=== PATIENT | male | born 1985 | race Caucasian/White ===

== ENCOUNTER → 2018-12-14 17:25 | Outpatient (CLI) | payer BC, SELFPAY ==
--- NOTE | 2018-12-14 17:41 | XR_ITS ---
PROCEDURE: XR HIP LT 2-3V W/PELVIS CLINICAL INDICATION: LEFT HIP PAIN, NO INJURY COMPARISON: [id number] HIP RT 2-3V W/PELVIS IF PERFOR from 10/12/2016 FINDINGS: No fracture or dislocation. No lytic or blastic change. There is minimal spurring along the inferior aspect of the acetabulum. IMPRESSION: Minimal degenerative change, no acute finding Dictated by: Eugenio Zuniga MD 12/15/2018 04:40 Electronically signed by Eugenio Zuniga MD in [place] 12/15/2018 04:40
== END ==
PROVIDERS: PCP Family Medicine; Visit Provider Family Medicine
DX: M53.3 Sacrococcygeal disorders, not elsewhere classified (principal)
CPT/HCPCS: 73502

== ENCOUNTER → 2019-03-14 08:33 | Outpatient (CLI) | payer BC, SELFPAY ==
--- NOTE | 2019-03-14 08:34 | MR_ITS ---
PROCEDURE: MR LUMBAR SPINE WO CON CLINICAL INDICATION: SCIATICA OF LT SIDE COMPARISON: LS5 LUMBAR SPINE 5 VIEWS from 10/12/2016 TECHNIQUE: Standard multiplanar multiecho sequences are performed without contrast. 3-D MIP and myelographic images are also rendered and reviewed FINDINGS: Alignment, vertebral body heights and signal from the osseous marrow elements are normal. Disc space heights are normal. There is no disc bulge, herniation or central canal stenosis. Posterior elements are intact and appear normal. Nerve roots in the foraminal areas appear normal. Conus and cauda equina structures are normal. Paraspinal areas are IMPRESSION: Unremarkable. Normal exam. Dictated by: Bret Wise 03/14/2019 12:37 Electronically signed by Bret Wise in [place] 03/14/2019 12:37
== END ==
PROVIDERS: PCP Family Medicine; Visit Provider Family Medicine
DX: M54.32 Sciatica, left side (principal)
CPT/HCPCS: 72148; 76376

== ENCOUNTER → 2019-10-16 11:42 | Outpatient (CLI) | payer BC, SELFPAY ==
[2019-10-16 12:06] LABS: Basophils % 0.7 % (0.1-2.0); Eosinophils # 0.2 K/mm3 (0.0-0.4); Eosinophils % 2.7 % (0.1-12.0); Hematocrit 45.6 % (42.0-52.0); Hemoglobin 15.9 g/dL (14.1-18.0); Lymphocytes # 2.2 K/mm3 (0.7-4.5); Lymphocytes % 34.7 % (10-50); Mean Corpuscular HGB Conc 34.9 g/dL (31.8-35.4); Mean Corpuscular Hemoglobin 28.6 pg (27.0-31.2); Mean Platelet Volume 8.7 fl (7.4-10.4); Monocytes # 0.3 K/mm3 (0.1-1.0); Monocytes % 4.6 % (1.7-9.3); Neutrophils # 3.7 K/mm3 (1.8-7.8); Neutrophils % 57.3 % (37.0-80.0); Platelet Count 205 K/mm3 (142-424); Red Blood Count 5.56 M/mm3 (4.60-6.20); Red Cell Distribution Width 14.1 % (11.5-17.5); White Blood Count 6.4 K/mm3 (4.8-10.8)
[2019-10-16 14:26] LABS: Chloride 99 mmol/L (98-107); Sodium 140 mmol/L (136-145)
[2019-10-16 14:27] LABS: Potassium 5.1 mmoL/L (3.5-5.1)
[2019-10-16 14:29] LABS: Blood Urea Nitrogen 11 mg/dl (9-20); Estimated Glomerular Filt Rate 128 ml/min (>60); GFR (African American) 155 ML/MIN (>60)
[2019-10-16 14:30] LABS: Anion Gap 17.1 mEq/L (5-15); Calcium 9.8 mg/dl (8.4-10.2); Carbon Dioxide 29 mmol/L (22.0-30.0); Glucose 116 mg/dl (74-100)
[2019-10-16 20:16] LABS: Coronavirus 19 IgM Antibody Negative (Negative)
[2019-10-16 20:18] LABS: Coronavirus 19 IgG Antibody Positive (Negative)
== END ==
PROVIDERS: Visit Provider Surgery
DX: Z01.818 Encounter for other preprocedural examination (principal); L02.215 Cutaneous abscess of perineum
CPT/HCPCS: 36415; 80048; 85025; 86328

== ENCOUNTER 2019-10-18 09:22 | Day surgery (SDC) | payer BC, SELFPAY ==
[2019-10-18] VITALS (10 sets, daily range): BP systolic 125–168; BP diastolic 71–97; PULSE 73–98; RESP 12–18; TEMP 36.4–36.7; O2SAT 91–100
[2019-10-18 10:29] LABS: POC Glucose,Bedside 137 (70-110)
--- NOTE | 2019-10-18 11:18 | HMH.OPNOTE ---
Date of procedure: 10/18/19 Pre-op Diagnosis:: Chronic perianal abscess Post-op Diagnosis:: Same Procedure performed:: Excision and debridement of presumed perianal hidradenitis Surgeon:: Raghavendra Guaman MD CHEMICAL DEPENDENCY PROFESSIONAL:: Elvis Glover Anesthesia: LMA Estimated blood loss (mL): 5 Clinical Note:: Patient is a pleasant 34-year-old white male diabetic from [facility] referred by Jose Antonio Starks for perirectal abscess. Patient states that he has had an area in the perianal location for about 6 months. He occasionally has intermittent swelling and appreciable drainage. It never fully resolves. Operative findings:: Consistent with subdermal focal hidradenitis and not true perirectal abscess with some underlying chronic inflammatory granulation tissue Operative note:: Patient was taken the operating room. He was positioned in a supine position. General anesthesia was induced via LMA. He was then repositioned in traditional lithotomy position. The area was prepped and draped in the standard surgical fashion. There is an area of induration in the left posterior lateral location. Limited incision was made. There is no gross purulence. Limited elliptical incision was made excising the central area of inflammation. This was sent as specimen. There was some underlying chronically inflamed granulation tissue grossly consistent with probable hidradenitis. Wound was probed with a blunt probe. It did track somewhat anteriorly and posteriorly. This was opened in a limited fashion using electrocautery. The tissues were then debrided with a small curette. This did not appear to track deeply as would be the case with a perirectal abscess. Wound was irrigated. Hemostasis was achieved with limited use of electrocautery. Local anesthetic was infiltrated. Wound was lightly packed with dry gauze and covered with clean dry sterile dressing. Condition: stable Disposition: PACU Complications:: None immediately apparent
--- NOTE | 2019-10-18 11:19 | HMH.ANESCL ---
[facility] Anesthesia Checklist - Structural Data Admitted From: Home Planned Operative Procedure/s: i/d perineal abcess Consent for Planned Operative Procedure(s) Verified: Yes - Additional verifications Anesthesia Reactions: No Hx Blood Transfusions: No Blood Transfusion Reaction: No - Airway Assessment C-Spine Mobility Assessed: Yes TMJ Mobility Assessed: Yes Dentition: Good Dentition - Neurological Assessment Level of Consciousness: Awake, Alert, Appropriate - Anesthesia Plan Anesthesia Risk discussed: Yes Anesthesia Plan: Verified ASA Class: III Anesthesia Type: General [facility] History I have reviewed the patient's past medical history: Yes Medical History: Reports:: Coronary Artery Disease, Diabetes Mellitus Type 2, Gastroesophageal Reflux Disease(GERD) Denies:: Cancer, Diabetes Mellitus Type 1, Internal Pacemaker, MRSA, Seizures *Have you ever received a pneumonia vaccine?: No *Have you received a flu vaccine this season?: No Other Medical History: Denies: Blood Transfusion Reaction Anesthesia experience/problems:: none Laterality Cases: Bilateral: Tonsillectomy Other Surgeries: Yes: Other. No: Pacemaker Amputation: No Fractures: No - *Social History Last grade of school completed: Some college Smoking Status: Current every day smoker Tobacco Type: smokeless tobacco # Packs/Day (cigarettes): 0 Alcohol Intake: never Alcohol Intake Frequency:: holidays/special occasions only Substance Use Type: denies use *Occupational Status:: employed Housing: house Household Members: family *Travel in the last 8 weeks: None Family Hx:: Anemia, Cancer, Coronary Artery Disease, Diabetes, Heart Attack, Hyperlipidemia, Hypertension, Thyroid Disorder
--- NOTE | 2019-10-18 11:19 | HMH.ANESI ---
[facility] Anesthesia Record Part I Intake, IV Amount: 1,500 Estimated blood loss (mL): 0 Urine output (mL): 0 Blood Pressure: 125/75 SaO2: 95 Pulse Rate: 98 Respiratory Rate: 12 Temperature: 98 F Patient is:: Awake, Stable Stable to PACU at:: 11:15
[2019-10-18 11:51] LABS: POC Glucose,Bedside 125 (70-110)
--- NOTE | 2019-10-20 09:41 | HMH.ANESII ---
[facility] Anesthesia Record Part II Discharge Time: 11:45 Destination: [facility] PACU nurse assessment reviewed?: Yes Patient Condition:: Good Anesthesia Complications:: None Swallowing reflex intact?: Yes Cyanosis?: No Blood Pressure: 159/87 Pulse Rate: 80 Temperature: 97.5 F Mental Status: Alert & Oriented Pain level:: 0 Nausea and/or vomitting:: None Intake, IV Amount: 1,500
[2019-10-20 09:42] VITALS: BP 159/87; PULSE 80; TEMP 36.4
== END 2019-10-18 12:25 | disposition home or self-care (01) ==
LOC: OR 09:23
PROVIDERS: PCP Family Medicine; Visit Provider Surgery
PROC: (CPT 46050; principal; 2019-10-18 11:00)
DX: L73.2 Hidradenitis suppurativa (principal); L08.89 Other specified local infections of the skin and subcutaneous tissue; I25.10 Atherosclerotic heart disease of native coronary artery without angina pectoris; E11.9 Type 2 diabetes mellitus without complications; K21.9 Gastro-esophageal reflux disease without esophagitis; Z90.89 Acquired absence of other organs; E78.5 Hyperlipidemia, unspecified; I10 Essential (primary) hypertension; I51.9 Heart disease, unspecified; E06.9 Thyroiditis, unspecified; Z88.0 Allergy status to penicillin; Z79.899 Other long term (current) drug therapy
CPT/HCPCS: 46050; 82962; 96374; J2405

== ENCOUNTER 2019-12-07 16:05 | Emergency (ER) | payer BC, SELFPAY ==
[2019-12-07 16:56] VITALS: BP 150/94; PULSE 78; RESP 16; TEMP 37.6; O2SAT 98; BMI 40.8
--- NOTE | 2019-12-07 17:14 | HMH.EDUTC ---
[facility] [place] Clinical Impression: Encounter for laboratory testing for COVID-19 virus Disposition: Home, Self-Care Condition on Discharge: Good Instructions: Preventing the Spread of Coronavirus Discharge Instructions Additional Instructions: You was tested for COVID 19, make sure to call back to the [facility] in the next 48-72 hours to see if your test results are back and the results *Return if needed Straight to ER if any life threatening symptoms No work until you have a negative test result Referrals: Jian Starks MD [Primary Care Provider] - As needed Forms: Work/School Release Time of Disposition: 17:19 Medical Decision Making - Gato Inquiry Pt receiving controlled substance: No Gato was queried for this patient: No Vital Signs: 12/07/19 16:56 Temperature 99.7 F H Temperature Source Oral Pulse Rate [Left Radial] 78 Respiratory Rate 16 Blood Pressure [Right Arm] 150/94 H Blood Pressure Mean [Right Arm] 112 Blood Pressure Source [Right Arm] Automatic Cuff Blood Pressure Position [Right Arm] Sitting 02 Sat by Pulse Oximetry 98 Oxygen Delivery Method Room Air Orders (Tests/Meds): ORDERS Category Date Time Status Covid-19 Nasal PCR Sendout [facility] 12/07/19 17:08 Received [facility] HPI - General Stated complaint: COVID test Time Seen by Provider: 12/07/19 17:14 Mode of Arrival: Ambulatory Source of Information: Patient Limitations: No Limitations Description of Symptoms (Recalled from Triage Doc. by RN): Pt states he was at a family gathering last week and was exposed to COVID-19. Pt states he has no symptoms but wants tested for the virus. HEENT Symptoms (Recalled from RN notes): No Resp Symptoms (Recalled from RN notes): No Skin Symptoms (Recalled from RN notes): No MS Symptoms (Recalled from RN notes): No Functional Status (Recalled from RN notes): wnl - History of Present Illness Provider Complaint: Patient states that he was around his brother in law last week that has since been dx with COVID States that he isnt having any symptoms but his work wanted him to get tested where he has been around someone that was positive - Related Data Home Medications Medication Instructions Recorded Confirmed Dulaglutide [Trulicity] 1.5 mg SQ WEEKLY 06/26/19 11/13/19 Metformin HCl [Metformin 1000mg 1,000 mg PO BID 06/26/19 11/13/19 Tablets] Omeprazole Magnesium [Prilosec] 10 mg PO DAILY 06/26/19 11/13/19 lisinopriL [Lisinopril 10mg Tab] 10 mg PO BID 06/26/19 11/13/19 gabapentin 300 mg capsule 300 mg PO BID 10/06/19 11/13/19 Previous Rx's Medication Instructions Recorded clindamycin HCl 300 mg capsule 300 mg PO TID #90 cap 11/03/19 tetracycline 500 mg capsule 500 mg PO Q12H 10 Days #20 cap 11/13/19 Allergies Allergy/AdvReac Type Severity Reaction Status Date / Time Penicillins Allergy Verified 11/13/19 09:00 - Worker's Comp Is this a Worker's Comp case?: No Is this an [facility] Worker's Comp?: No Is this a [facility] Worker's Comp?: No [facility] History - Hepatitis A Screen Drug use history?: No High risk sexual behaviors?: No History of sexually transmitted infection?: No Currently employed?: No Childcare worker?: No Do you have indoor plumbing?: Yes Do you have electricity?: Yes Attestation statement:: This patient has been screened for Hepatitis A risk factors. I have reviewed the patient's past medical history: Yes Medical History: Reports:: Coronary Artery Disease, Gastroesophageal Reflux Disease(GERD) Denies:: Cancer, Diabetes Mellitus Type 1, Diabetes Mellitus Type 2, Internal Pacemaker, MRSA, Seizures Other Medical History: Denies: Blood Transfusion Reaction Laterality Cases: Bilateral: Tonsillectomy Other Surgeries: Yes: Other. No: Pacemaker Amputation: No Fractures: No - Social History Smoking Status: Never smoker Tobacco Type: smokeless tobacco # Packs/Day (cigarettes): 0 Alcohol Intake: never Alcohol Intake Frequency:: holidays/special o
[2019-12-07 17:27] VITALS: BP 150/94; PULSE 78; RESP 16; TEMP 37.6; O2SAT 98
[2019-12-10 12:47] LABS: Covid-19 Nasal PCR Sendout Lex NOT DETECTED
== END 2019-12-07 17:28 | disposition home or self-care (01) ==
PROVIDERS: Emergency Provider Nurse Practitioner; PCP Family Medicine
DX: Z20.828 Contact with and (suspected) exposure to other viral communicable diseases (principal); E11.9 Type 2 diabetes mellitus without complications; I10 Essential (primary) hypertension; I25.10 Atherosclerotic heart disease of native coronary artery without angina pectoris; K21.9 Gastro-esophageal reflux disease without esophagitis; Z88.0 Allergy status to penicillin; Z79.899 Other long term (current) drug therapy
CPT/HCPCS: 99201; U0004

== ENCOUNTER → 2019-12-28 13:22 | Outpatient (CLI) | payer BC, SELFPAY ==
[2019-12-28 15:39] LABS: Chloride 101 mmol/L (98-107); Sodium 139 mmol/L (136-145)
[2019-12-28 15:41] LABS: Alanine Aminotransferase 55 U/L (12-78); Aspartate Amino Transferase 41 U/L (17-59); Blood Urea Nitrogen 10 mg/dl (9-20); Estimated Glomerular Filt Rate 110 ml/min (>60); GFR (African American) 133 ML/MIN (>60)
[2019-12-28 15:42] LABS: Albumin Level 4.6 g/dl (3.5-5.0); Albumin/Globulin Ratio 1.7 (1.1-1.8); Alkaline Phosphatase 61 U/L (38-126); Bilirubin,Total 0.5 mg/dl (0.2-1.3); Calcium 9.7 mg/dl (8.4-10.2); Carbon Dioxide 30 mmol/L (22.0-30.0); Cholesterol 78 mg/dl (140-200); Globulin 2.7 g/dL (1.3-3.2); Glucose 121 mg/dl (74-100); HDL Cholesterol 39 mg/dl (40-60); Total Protein,Serum 7.3 g/dl (6.3-8.2); Triglycerides 39 mg/dl (30-150); VLDL Cholesterol 8 mg/dL (0-40)
[2019-12-28 15:57] LABS: Direct LDL Cholesterol 33.59 mg/dL (100-129)
[2019-12-28 16:16] LABS: Thyroid Stimulating Hormone 1.14 uIU/mL (0.465-4.68)
[2019-12-28 17:15] LABS: Hemoglobin A1C 7.2 % (4.0-6.0)
== END ==
PROVIDERS: Visit Provider Family Medicine
DX: E78.00 Pure hypercholesterolemia, unspecified (principal); I10 Essential (primary) hypertension; E11.9 Type 2 diabetes mellitus without complications; Z79.84 Long term (current) use of oral hypoglycemic drugs
CPT/HCPCS: 36415; 80053; 80061; 83036; 84443

== ENCOUNTER → 2020-01-03 07:49 | Outpatient (CLI) | payer BC, SELFPAY ==
--- NOTE | 2020-01-03 | CA_ITS ---
APPROVED REPORT Exam: Exercise Treadmill Technologist: Abi Krause Ht: 5 ft 9 in Wt: 276 lbs BSA: 2.37 m2 HR: 74 bpm BP: 143/86 mmHg Indications: Precordial chest pain Medical History Medications: Lisinopril,,,,, Omeprazole,,,,, Metformin,,,,, GabPENTIN,,,,, ClINDAMYCIN,,,,, TrULicity,,,,, TeTRacycline,,,,, Stress Test Details Test: Aditya HR Resting HR: 78 bpm Max Heart Rate (APMHR): 185 bpm Max HR Achieved: 163 bpm Target HR (85% APMHR): 157 bpm % of APMHR: 88 Recovery HR: 108 bpm BP Resting BP: 143.0/86.0 mmHg Max BP: 250.0/80.0 mmHg Recovery BP: 150.0/81.0 mmHg ECG Clinical Exercise duration: 06:30 min Highest Stage Achieved: Exercise capacity: 7.0 METs Stress ECG Conclusion Resting ECG: Normal sinus rhythm, nonspecific IVCD. Symptoms: Dyspnea. No chest pain. Arrhythmias/Ectopy: Occasional fusion beat during exercise. Occasional PVC and Ventricular couplet after exercise. ST-T Changes: Inferior & lateral T wave inversion with 1.5 - [address] depression inferiorly and 1-1.5 mm of horizontal and downsloping ST depression laterally. Conclusion: EKG changes positive for ischemia. Hypertensive response to exercise. Myoview images reported separately. Test Summary RECOVERY 03:00 0.0 0.0 111 . 203/ 88 . . REST . . . . . . . Standing REST 04:19 0.0 0.0 78 . 143/ 86 . . Stage 1 01:00 10.0 1.7 112 . . . . Stage 1 02:00 10.0 1.7 127 . . . . Stage 1 03:00 10.0 1.7 135 . 220/ 92 . . Stage 2 01:00 12.0 2.5 141 . . . . Stage 2 02:00 12.0 2.5 152 . 234/ 80 . . Stage 2 . . . . . . . Myoview Injected Stage 2 . . . . . . . Stage held Stage 2 . . . . . . . Shortness of Breath Stage 2 03:00 12.0 2.5 160 . 234/ 80 . . Stage 2 . . . . . . . Stage resumed Stage 2 03:30 12.0 2.5 163 . 234/ 80 . Stop exercise at 06:30 RECOVERY 01:00 0.0 0.0 135 . 250/ 80 . . RECOVERY 02:00 0.0 0.0 120 . 250/ 80 . . RECOVERY 03:00 0.0 0.0 111 . 203/ 88 . . RECOVERY 04:00 0.0 0.0 106 . 203/ 88 . . RECOVERY 05:00 0.0 0.0 101 . 170/ 84 . . RECOVERY 06:00 0.0 0.0 101 . 170/ 84 . . RECOVERY 07:00 0.0 0.0 108 . 150/ 81 . . RECOVERY 07:59 0.0 0.0 98 . 150/ 81 . . Electronically signed by : Bryon Moreno, 01/05/2020 14:01:20
--- NOTE | 2020-01-03 07:56 | NM_ITS ---
APPROVED REPORT Exam: Nuclear Stress Test Indication: HTN, D.M., TOB USE, FM HX, C.P., SOB, PALPITATIONS, FATIGUE Patient Location: Outpatient Stress Tech: Abi Krause OR Tech:Shilpi Lincoln, ARRT, RT (R)(N) Ht: 5 ft 9 in Wt: 276 lbs HR: 74 bpm BP: 143/86 mmHg BSA: 2.37 m2 BMI: 40.7 History: HTN, D.M., TOB USE, FM HX, C.P., SOB, PALPITATIONS, FATIGUE Procedure: Patient exercised on Aditya protocol 6:00 minutes and sec, resting heart rate 74 bpm, resting blood pressure 143/86 mmHg, with exercise maximum heart rate achived was 156 bpm which is 88 % of the maximum predicted heart rate and blood pressure was 234/80 mmHg. Patient denied any complaint of chest pain. Patient has Adequate exercise capacity, achieved 7 METs of workload on treadmill, the blood pressure response to exercise was Hypertensive. Electrocardiogram Resting electrocardiogram showed sinus rhythm, with exercise there is additional [address] segment depression noted from the baseline EKG. The EKG portion of the exercise Myoview is positive for ischemia. Cardiac Stress and Resting SPECT Images: Cardiac Stress and Resting SPECT images were obtained using technetium 99m Myoview 32.1 mCi stress and 10.19 mCi at rest. Gated SPECT for the analysis of segmental wall motion and calculation of the ejection fraction also done. Cardiac stress and resting SPECT images show uniform myocardial activity without segmental perfusion abnormality, computer derived ejection fraction 45% with no regional wall motion abnormality, there is transient ischemic dilatation of the left ventricle seen. Right ventricle is mildly enlarged with normal contractility. Conclusion: 1. The EKG portion of the exercise Myoview is positive for ischemia, patient has adequate exercise capacity achieved 7 mets of workload on treadmill, the blood pressure response to exercise was hypertensive, test was stopped due to shortness of breath. 2. No scintigraphic evidence of reversible ischemia seen, however there is transient ischemic dilatation of the left ventricle seen raising the concerns for presence of balanced ischemia. Right ventricle is mildly enlarged with normal contractility, left ventricular ejection fraction is 45% with no regional wall motion abnormality pain 3. Abnormal exercise Myoview study. Electronically signed by : Bryon Moreno, 01/05/2020 15:00:56
--- NOTE | 2020-01-03 07:57 | XR_ITS ---
PROCEDURE: XR CHEST 2V CLINICAL HISTORY: ASTHMA Chest discomfort, wheezing COMPARISON: CR XR CHEST PORTABLE from 06/26/2019 FINDINGS: The cardiomediastinal silhouette and pulmonary vascularity are within normal limits. There are slight increased markings in the right lower lung zone suggesting a patchy area of atelectasis or infiltrate. The remaining lungs are clear. No acute bony abnormalities. IMPRESSION: Patchy atelectasis or infiltrate in the right lower lung zone Dictated by: Eugenio Zuniga MD 01/03/2020 08:41 Eugenio Zuniga MD in [place] 01/03/2020 08:41
--- NOTE | 2020-01-03 09:13 | HMH.ITSHM ---
Current Home Medications as stated by this patient Varun Crocker or enrollment eligibility representative. []CHLORTHALIDONE METFORMIN LISINOPRIL PROAIR TRAMADOL
== END ==
PROVIDERS: PCP Family Medicine; Visit Provider Family Medicine
DX: R07.2 Precordial pain (principal); J45.41 Moderate persistent asthma with (acute) exacerbation
CPT/HCPCS: 71046; 78452; 93017; A9502

== ENCOUNTER → 2020-02-28 12:36 | Outpatient (CLI) | payer BC, SELFPAY ==
[2020-02-28 13:09] LABS: Basophils # 0.1 K/mm3 (0-0.2); Basophils % 0.6 % (0.1-2.0); Eosinophils # 0.3 K/mm3 (0.0-0.4); Eosinophils % 3.9 % (0.1-12.0); Hematocrit 42.6 % (42.0-52.0); Hemoglobin 14.9 g/dL (14.1-18.0); Lymphocytes # 2.7 K/mm3 (0.7-4.5); Lymphocytes % 32.4 % (10-50); Mean Corpuscular Hemoglobin 28.8 pg (27.0-31.2); Mean Corpuscular Volume 82.2 fl (80-94); Mean Platelet Volume 8.6 fl (7.4-10.4); Monocytes # 0.5 K/mm3 (0.1-1.0); Monocytes % 6.4 % (1.7-9.3); Neutrophils # 4.6 K/mm3 (1.8-7.8); Neutrophils % 56.7 % (37.0-80.0); Platelet Count 240 K/mm3 (142-424); Red Blood Count 5.18 M/mm3 (4.60-6.20); Red Cell Distribution Width 13.9 % (11.5-17.5); White Blood Count 8.2 K/mm3 (4.8-10.8)
[2020-02-28 14:13] LABS: Coronavirus 19 IgG Antibody Negative (Negative); Coronavirus 19 IgM Antibody Negative (Negative)
[2020-02-29 12:33] LABS: Covid-19 Nasal PCR Sendout Lex Not Detected
== END ==
PROVIDERS: PCP Family Medicine; Visit Provider Family Medicine
DX: Z03.818 Encounter for observation for suspected exposure to other biological agents ruled out (principal)
CPT/HCPCS: 36415; 85025; 86328; U0004

== ENCOUNTER → 2020-04-15 16:00 | Outpatient (CLI) | payer BC, SELFPAY ==
[2020-04-17 11:53] LABS: Covid-19 Nasal PCR Sendout P&C Negative
== END ==
PROVIDERS: PCP Nurse Practitioner; Visit Provider Nurse Practitioner
DX: Z20.822 Contact with and (suspected) exposure to COVID-19 (principal)
CPT/HCPCS: U0004

== ENCOUNTER → 2020-07-11 16:38 | Outpatient (CLI) | payer BC, SELFPAY ==
--- NOTE | 2020-07-11 16:43 | XR_ITS ---
PROCEDURE: XR CHEST PORTABLE CLINICAL HISTORY: COVID OUTPATIENT COMPARISON: CR XR CHEST PORTABLE from 06/26/2019 CR XR CHEST 2V from 01/03/2020 FINDINGS: The cardiomediastinal silhouette and pulmonary vascularity are within normal limits. The lungs are clear without infiltrates, suspicious nodules, or pleural effusions. No acute bony abnormalities. IMPRESSION: No acute findings. Dictated by: Eugenio Zuniga MD 07/11/2020 17:06 Eugenio Zuniga MD in [place] 07/11/2020 17:06
[2020-07-11 17:11] LABS: Basophils # 0.1 K/mm3 (0-0.2); Basophils % 0.8 % (0.1-2.0); Eosinophils # 0.3 K/mm3 (0.0-0.4); Eosinophils % 4.4 % (0.1-12.0); Hematocrit 41.8 % (42.0-52.0); Hemoglobin 14.1 g/dL (14.1-18.0); Lymphocytes # 2.1 K/mm3 (0.7-4.5); Lymphocytes % 31.2 % (10-50); Mean Corpuscular HGB Conc 33.7 g/dL (31.8-35.4); Mean Corpuscular Hemoglobin 27.8 pg (27.0-31.2); Mean Corpuscular Volume 82.3 fl (80-94); Mean Platelet Volume 8.4 fl (7.4-10.4); Monocytes # 0.3 K/mm3 (0.1-1.0); Neutrophils # 3.9 K/mm3 (1.8-7.8); Neutrophils % 58.6 % (37.0-80.0); Platelet Count 230 K/mm3 (142-424); Red Blood Count 5.07 M/mm3 (4.60-6.20); Red Cell Distribution Width 13.5 % (11.5-17.5); White Blood Count 6.7 K/mm3 (4.8-10.8)
== END ==
PROVIDERS: PCP Family Medicine; Visit Provider Physician Assistant
DX: Z20.822 Contact with and (suspected) exposure to COVID-19 (principal)
CPT/HCPCS: 36415; 71045; 85025; U0003

== ENCOUNTER → 2021-10-21 06:12 | Outpatient (CLI) | payer BC, SELFPAY ==
[2021-10-20 19:04] LABS: Alanine Aminotransferase 101 U/L (12-78); Albumin Level 3.7 g/dl (3.5-5.0); Albumin/Globulin Ratio 1.5 (1.1-1.8); Alkaline Phosphatase 152 U/L (38-126); Aspartate Amino Transferase 78 U/L (17-59); Blood Urea Nitrogen 25 mg/dl (9-20); Calcium 8.8 mg/dl (8.4-10.2); Carbon Dioxide 23 mmol/L (22.0-30.0); Chloride 93 mmol/L (98-107); Estimated Glomerular Filt Rate 75 ml/min (>60); GFR (African American) 91 ML/MIN (>60); Globulin 2.4 g/dL (1.3-3.2); Sodium 127 mmol/L (136-145); Total Protein,Serum 6.1 g/dl (6.3-8.2)
[2021-10-20 19:24] LABS: Basophils # 0.1 K/mm3 (0-0.2); Basophils % 0.6 % (0.1-2.0); Eosinophils # 0.2 K/mm3 (0.0-0.4); Eosinophils % 1.9 % (0.1-12.0); Hematocrit 44.8 % (42.0-52.0); Hemoglobin 13.9 g/dL (14.1-18.0); Lymphocytes # 2.2 K/mm3 (0.7-4.5); Lymphocytes % 25.4 % (10-50); Mean Corpuscular Hemoglobin 27.4 pg (27.0-31.2); Mean Corpuscular Volume 88.2 fl (80-94); Mean Platelet Volume 10.2 fl (7.4-10.4); Monocytes # 0.5 K/mm3 (0.1-1.0); Monocytes % 5.9 % (1.7-9.3); Neutrophils # 5.7 K/mm3 (1.8-7.8); Neutrophils % 66.2 % (37.0-80.0); Platelet Count 232 K/mm3 (142-424); Red Blood Count 5.08 M/mm3 (4.60-6.20); Red Cell Distribution Width 14.1 % (11.5-17.5); White Blood Count 8.6 K/mm3 (4.8-10.8)
[2021-10-20 19:33] LABS: Prostate Specific Ag Screen 0.4 ng/ml (0.0-4.0); Thyroid Stimulating Hormone 1.03 uIU/mL (0.465-4.68)
[2021-10-20 20:42] LABS: Bilirubin,Total < 0.1 mg/dl (0.2-1.3)
[2021-10-20 23:02] LABS: Glucose 664 mg/dl (74-100)
== END ==
PROVIDERS: PCP Family Medicine; Visit Provider Family Medicine
DX: E11.9 Type 2 diabetes mellitus without complications (principal); R00.0 Tachycardia, unspecified; R35.0 Frequency of micturition; R35.89 Other polyuria; E66.9 Obesity, unspecified; Z68.41 Body mass index [BMI] 40.0-44.9, adult; Z79.4 Long term (current) use of insulin; Z12.5 Encounter for screening for malignant neoplasm of prostate
CPT/HCPCS: 80053; 84443; 85025; G0103

== ENCOUNTER → 2022-03-16 09:05 | Outpatient (CLI) | payer BC, SELFPAY ==
[2022-03-16 13:59] LABS: Adenovirus,PCR Not Detected (NotDetected); Bordetella Pertussis Not Detected (NotDetected); Chlamydophila Pneumoniae, PCR Not Detected (NotDetected); Coronavirus 229E Not Detected (NotDetected); Coronavirus NL63 Not Detected (NotDetected); Coronavirus OC43 Not Detected (NotDetected); Coronovirus HKU1,PCR Not Detected (NotDetected); Human Metapneumovirus Not Detected (NotDetected); Influenza A, PCR Not Detected (NotDetected); Influenza AH1, 2009 Not Detected (NotDetected); Influenza AH1, PCR Not Detected (NotDetected); Influenza AH3,PCR Not Detected (NotDetected); Influenza B, PCR Not Detected (NotDetected); Mycoplasma Pneumoniae, PCR Not Detected (NotDetected); Parainfluenza 1, PCR Not Detected (NotDetected); Parainfluenza 2, PCR Not Detected (NotDetected); Parainfluenza 3, PCR Not Detected (NotDetected); Parainfluenza 4, PCR Not Detected (NotDetected); Respiratory Syncytial Virus Not Detected (NotDetected); Rhinovirus/Enterovirus Not Detected (NotDetected)
[2022-03-16 16:55] LABS: Coronavirus 19, PCR Detected (NotDetected)
== END ==
PROVIDERS: PCP Nurse Practitioner; Visit Provider Nurse Practitioner
DX: U07.1 COVID-19 (principal); R68.89 Other general symptoms and signs
CPT/HCPCS: 87581; 87632; 87798; C9803; U0003; U0005

== ENCOUNTER → 2022-04-21 01:00 | Outpatient (CLI) | payer BC, SELFPAY ==
[2022-04-21 18:15] LABS: Adenovirus,PCR Not Detected (NotDetected); Bordetella Pertussis Not Detected (NotDetected); Chlamydophila Pneumoniae, PCR Not Detected (NotDetected); Coronavirus 19, PCR Not Detected (NotDetected); Coronavirus 229E Not Detected (NotDetected); Coronavirus NL63 Not Detected (NotDetected); Coronavirus OC43 Not Detected (NotDetected); Coronovirus HKU1,PCR Not Detected (NotDetected); Human Metapneumovirus Not Detected (NotDetected); Influenza A, PCR Not Detected (NotDetected); Influenza AH1, 2009 Not Detected (NotDetected); Influenza AH1, PCR Not Detected (NotDetected); Influenza AH3,PCR Not Detected (NotDetected); Influenza B, PCR Not Detected (NotDetected); Mycoplasma Pneumoniae, PCR Not Detected (NotDetected); Parainfluenza 1, PCR Not Detected (NotDetected); Parainfluenza 2, PCR Not Detected (NotDetected); Parainfluenza 3, PCR Not Detected (NotDetected); Parainfluenza 4, PCR Not Detected (NotDetected); Respiratory Syncytial Virus Not Detected (NotDetected); Rhinovirus/Enterovirus Not Detected (NotDetected)
[2022-04-21 18:19] LABS: Chloride 104 mmol/L (98-107); Potassium 4.6 mmoL/L (3.5-5.1); Sodium 139 mmol/L (136-145)
[2022-04-21 18:22] LABS: Alanine Aminotransferase 50 U/L (12-78); Albumin Level 4.2 g/dl (3.5-5.0); Albumin/Globulin Ratio 1.4 (1.1-1.8); Alkaline Phosphatase 73 U/L (38-126); Anion Gap 11.6 mEq/L (5-15); Aspartate Amino Transferase 29 U/L (17-59); Bilirubin,Total 0.4 mg/dl (0.2-1.3); Blood Urea Nitrogen 19 mg/dl (9-20); Calcium 9.3 mg/dl (8.4-10.2); Carbon Dioxide 28 mmol/L (22.0-30.0); Estimated Glomerular Filt Rate 68 ml/min (>60); GFR (African American) 82 ML/MIN (>60); Globulin 2.9 g/dL (1.3-3.2); Glucose 135 mg/dl (74-100); Total Protein,Serum 7.1 g/dl (6.3-8.2)
== END ==
PROVIDERS: PCP Family Medicine; Visit Provider Family Medicine
DX: E11.9 Type 2 diabetes mellitus without complications (principal); Z79.4 Long term (current) use of insulin; R05.9 Cough, unspecified; Z20.818 Contact with and (suspected) exposure to other bacterial communicable diseases
CPT/HCPCS: 80053; 87581; 87632; 87798; C9803; U0003; U0005

== ENCOUNTER → 2023-02-17 08:34 | Outpatient (CLI) | payer BC, SELFPAY ==
[2023-02-17 18:34] LABS: Coronavirus 19, PCR Not Detected (NotDetected); Influenza A, PCR Not Detected (NotDetected); Influenza B, PCR Not Detected (NotDetected)
== END ==
PROVIDERS: PCP Family Medicine; Visit Provider Nurse Practitioner
DX: J06.9 Acute upper respiratory infection, unspecified (principal); R05.8 Other specified cough; R09.89 Other specified symptoms and signs involving the circulatory and respiratory systems
CPT/HCPCS: 87636

== ENCOUNTER → 2023-03-17 23:26 | Outpatient (CLI) | payer BC, SELFPAY ==
[2023-03-17 18:48] LABS: Basophils # 0.1 K/mm3 (0-0.2); Basophils % 0.7 % (0.1-2.0); Eosinophils # 0.2 K/mm3 (0.0-0.4); Hematocrit 47.8 % (42.0-52.0); Hemoglobin 16.2 g/dL (14.1-18.0); Lymphocytes # 2.8 K/mm3 (0.7-4.5); Lymphocytes % 34.8 % (10-50); Mean Corpuscular HGB Conc 33.9 g/dL (31.8-35.4); Mean Corpuscular Hemoglobin 27.9 pg (27.0-31.2); Mean Corpuscular Volume 82.2 fl (80-94); Monocytes # 0.4 K/mm3 (0.1-1.0); Monocytes % 5.1 % (1.7-9.3); Neutrophils # 4.5 K/mm3 (1.8-7.8); Neutrophils % 56.5 % (37.0-80.0); Platelet Count 240 K/mm3 (142-424); Red Blood Count 5.81 M/mm3 (4.60-6.20); Red Cell Distribution Width 15.1 % (11.5-17.5)
[2023-03-17 18:54] LABS: Alanine Aminotransferase 60 U/L (12-78); Albumin Level 4.3 g/dl (3.5-5.0); Albumin/Globulin Ratio 1.6 (1.1-1.8); Alkaline Phosphatase 146 U/L (38-126); Anion Gap 14.4 mEq/L (5-15); Aspartate Amino Transferase 42 U/L (17-59); Bilirubin,Total 0.3 mg/dl (0.2-1.3); Blood Urea Nitrogen 28 mg/dl (9-20); Calcium 9.4 mg/dl (8.4-10.2); Carbon Dioxide 25 mmol/L (22.0-30.0); Chloride 96 mmol/L (98-107); Chol/HDL Ratio 3.3 (1-3.5); Cholesterol 110 mg/dl (140-200); Estimated Glomerular Filt Rate 68 ml/min (>60); GFR (African American) 82 ML/MIN (>60); Globulin 2.7 g/dL (1.3-3.2); Glucose 318 mg/dl (74-100); HDL Cholesterol 33 mg/dl (40-60); Potassium 4.4 mmoL/L (3.5-5.1); Sodium 131 mmol/L (136-145); Triglycerides 204 mg/dl (30-150); VLDL Cholesterol 41 mg/dL (0-40)
[2023-03-17 19:05] LABS: Direct LDL Cholesterol 55.63 mg/dL (100-129)
[2023-03-17 19:24] LABS: Thyroid Stimulating Hormone 1.52 uIU/mL (0.465-4.68)
[2023-03-17 19:26] LABS: Hemoglobin A1C 13.4 % (4.0-6.0)
[2023-03-17 19:34] LABS: Microalbumin/Creatinine Ratio 15.4
[2023-03-17 19:37] LABS: Creatinine,Urine Random 42 mg/dL (Not Estab.)
[2023-03-17 19:43] LABS: Vitamin B12 627 pg/mL (239-931)
== END ==
LOC: LAB.DROPOF 23:27
PROVIDERS: PCP Family Medicine; Visit Provider Nurse Practitioner
DX: E11.9 Type 2 diabetes mellitus without complications (principal); I10 Essential (primary) hypertension; E55.9 Vitamin D deficiency, unspecified; Z79.4 Long term (current) use of insulin
CPT/HCPCS: 80053; 80061; 82043; 82306; 82570; 82607; 83036; 84443; 85025

== ENCOUNTER 2023-06-14 19:33 | Outpatient (CLI) | payer BC, SELFPAY ==
[2023-06-14 19:27] LABS: Chloride 103 mmol/L (98-107); Potassium 4.1 mmoL/L (3.5-5.1); Sodium 137 mmol/L (136-145)
[2023-06-14 19:30] LABS: Alanine Aminotransferase 63 U/L (12-78); Albumin Level 4.2 g/dl (3.5-5.0); Albumin/Globulin Ratio 1.6 (1.1-1.8); Alkaline Phosphatase 76 U/L (38-126); Anion Gap 11.1 mEq/L (5-15); Aspartate Amino Transferase 41 U/L (17-59); Bilirubin,Total 0.4 mg/dl (0.2-1.3); Blood Urea Nitrogen 30 mg/dl (9-20); Calcium 9.6 mg/dl (8.4-10.2); Carbon Dioxide 27 mmol/L (22.0-30.0); Estimated Glomerular Filt Rate 75 ml/min (>60); GFR (African American) 91 ML/MIN (>60); Globulin 2.6 g/dL (1.3-3.2); Glucose 113 mg/dl (74-100); Total Protein,Serum 6.8 g/dl (6.3-8.2)
[2023-06-14 20:28] LABS: 25-OH Vitamin D, Total 57.3 ng/mL (30-100)
== END 2023-06-14 23:59 ==
LOC: LAB.DROPOF 19:33
PROVIDERS: PCP Nurse Practitioner; Visit Provider Nurse Practitioner
DX: E11.9 Type 2 diabetes mellitus without complications (principal); E55.9 Vitamin D deficiency, unspecified; Z79.4 Long term (current) use of insulin
CPT/HCPCS: 80053; 82306

== ENCOUNTER 2023-08-30 18:00 | Outpatient (CLI) | payer BC, SELFPAY ==
[2023-08-30 18:25] LABS: Chloride 103 mmol/L (98-107); Potassium 5.5 mmoL/L (3.5-5.1); Sodium 137 mmol/L (136-145)
[2023-08-30 18:28] LABS: Alanine Aminotransferase 50 U/L (12-78); Albumin Level 4.3 g/dl (3.5-5.0); Albumin/Globulin Ratio 1.6 (1.1-1.8); Alkaline Phosphatase 63 U/L (38-126); Anion Gap 15.5 mEq/L (5-15); Aspartate Amino Transferase 34 U/L (17-59); Bilirubin,Total 0.3 mg/dl (0.2-1.3); Blood Urea Nitrogen 40 mg/dl (9-20); Carbon Dioxide 24 mmol/L (22.0-30.0); Estimated Glomerular Filt Rate 52 ml/min (>60); GFR (African American) 63 ML/MIN (>60); Globulin 2.7 g/dL (1.3-3.2)
[2023-08-30 18:29] LABS: Glucose 134 mg/dl (74-100)
[2023-08-30 19:26] LABS: Hemoglobin A1C 7.2 % (4.0-6.0)
== END 2023-08-30 23:59 | disposition home or self-care (01) ==
LOC: LAB.DROPOF 08-31 09:55
PROVIDERS: PCP Nurse Practitioner; Visit Provider Nurse Practitioner
DX: E11.9 Type 2 diabetes mellitus without complications (principal); Z79.84 Long term (current) use of oral hypoglycemic drugs; Z79.85 Long-term (current) use of injectable non-insulin antidiabetic drugs
CPT/HCPCS: 80053; 83036

== ENCOUNTER 2023-11-03 13:14 | Outpatient (CLI) | payer BC, SELFPAY ==
[2023-11-03 18:21] LABS: Coronavirus 19, PCR Not Detected (NotDetected); Influenza A, PCR Not Detected (NotDetected); Influenza B, PCR Not Detected (NotDetected)
== END 2023-11-03 23:59 | disposition home or self-care (01) ==
LOC: LAB.DROPOF 11-04 12:21
PROVIDERS: PCP Nurse Practitioner; Visit Provider Nurse Practitioner
DX: J06.9 Acute upper respiratory infection, unspecified (principal); Z87.891 Personal history of nicotine dependence
CPT/HCPCS: 87636

== ENCOUNTER 2024-04-27 14:00 | Outpatient (CLI) | payer BC, SELFPAY ==
[2024-04-27 18:13] LABS: Coronavirus 19, PCR Not Detected (NotDetected); Human Rhinovirus Not Detected (NotDetected); Influenza A, PCR Not Detected (NotDetected); Influenza B, PCR Not Detected (NotDetected); Respiratory Syncytial Virus Not Detected (NotDetected)
== END 2024-04-27 23:59 | disposition home or self-care (01) ==
LOC: LAB.DROPOF 04-28 12:36
PROVIDERS: PCP Nurse Practitioner Family; Visit Provider Nurse Practitioner Family
DX: J01.00 Acute maxillary sinusitis, unspecified (principal)
CPT/HCPCS: 87631

== ENCOUNTER 2024-06-02 09:09 | Outpatient (CLI) | payer BC, SELFPAY ==
[2024-06-02 09:42] LABS: Basophils % 0.6 % (0.1-2.0); Eosinophils # 0.2 K/mm3 (0.0-0.4); Eosinophils % 2.2 % (0.1-12.0); Hemoglobin 16.2 g/dL (14.1-18.0); Lymphocytes # 2.3 K/mm3 (0.7-4.5); Mean Corpuscular HGB Conc 33.8 g/dL (31.8-35.4); Mean Corpuscular Hemoglobin 27.4 pg (27.0-31.2); Mean Corpuscular Volume 81.2 fl (80-94); Mean Platelet Volume 10.1 fl (7.4-10.4); Monocytes # 0.6 K/mm3 (0.1-1.0); Neutrophils # 4.1 K/mm3 (1.8-7.8); Neutrophils % 56.8 % (37.0-80.0); Platelet Count 229 K/mm3 (142-424); Red Blood Count 5.91 M/mm3 (4.60-6.20); Red Cell Distribution Width 14.1 % (11.5-17.5); White Blood Count 7.3 K/mm3 (4.8-10.8)
[2024-06-02 10:10] LABS: Alanine Aminotransferase 49 U/L (12-78); Albumin Level 4.9 g/dl (3.5-5.0); Alkaline Phosphatase 49 U/L (38-126); Anion Gap 12.5 mEq/L (5-15); Aspartate Amino Transferase 31 U/L (17-59); Bilirubin,Direct 0.2 mg/dl (0.0-0.4); Bilirubin,Indirect 0.2 mg/dL (0.0-0.9); Bilirubin,Total 0.4 mg/dl (0.2-1.3); Bilirubin,Unconjugated 0.2 mg/dL (0.0-1.1); Blood Urea Nitrogen 25 mg/dl (9-20); Calcium 10.4 mg/dl (8.4-10.2); Carbon Dioxide 30 mmol/L (22.0-30.0); Chloride 101 mmol/L (98-107); Chol/HDL Ratio 2.2 (1-3.5); Cholesterol 75 mg/dl (140-200); Estimated Glomerular Filt Rate 75 ml/min (>60); GFR (African American) 90 ML/MIN (>60); Glucose 115 mg/dl (74-100); HDL Cholesterol 34 mg/dl (40-60); Potassium 4.5 mmoL/L (3.5-5.1); Sodium 139 mmol/L (136-145); Total Protein,Serum 7.1 g/dl (6.3-8.2); Triglycerides 40 mg/dl (30-150); VLDL Cholesterol 8 mg/dL (0-40)
[2024-06-02 10:14] LABS: D-Dimer 0.27 ug/mL (0.0-0.5)
[2024-06-02 10:30] LABS: Free T4 (Free Thyroxine) 1.23 ng/dl (0.78-2.19)
[2024-06-02 10:31] LABS: Direct LDL Cholesterol < 30.00 mg/dL (100-129); Troponin I < 0.01 ng/ml (0.00-0.034)
[2024-06-02 10:43] LABS: Thyroid Stimulating Hormone 0.98 uIU/mL (0.465-4.68)
== END 2024-06-02 23:59 | disposition home or self-care (01) ==
LOC: LAB 09:10
PROVIDERS: PCP Nurse Practitioner; Visit Provider Nurse Practitioner
DX: I20.89 Other forms of angina pectoris (principal); R00.0 Tachycardia, unspecified; I10 Essential (primary) hypertension; I49.9 Cardiac arrhythmia, unspecified; E66.9 Obesity, unspecified; R94.31 Abnormal electrocardiogram [ECG] [EKG]; E11.9 Type 2 diabetes mellitus without complications; E55.9 Vitamin D deficiency, unspecified
CPT/HCPCS: 36415; 80048; 80061; 80076; 84439; 84443; 84484; 85025; 85378; 93270

== ENCOUNTER 2024-06-07 14:03 | Outpatient (CLI) | payer BC, SELFPAY ==
--- NOTE | 2024-06-07 14:15 | CA_ITS ---
APPROVED REPORT EXAM: Comprehensive 2D, Doppler, and color-flow Echocardiogram Surgical Coordinator: Kanchan Wakefield RVT Ht: 5 ft 10 in Wt: 251lbs BSA: 2.30 BP: 116/79 mmHg Indications: CP,DM,DOA,FATIGUE,LISA,EX SMOKER,HTN 2D Dimensions LA Volume 21.80 mL LA Volume Index 9.48 mL/m2 (M/F) 16-34 M-Mode Dimensions RVDd 2.89 cm (0.9-2.6) LA Diam 3.48 cm (1.9-4.0) LVDd 4.18 cm (3.5-5.7) LVDs 2.21 cm (3.5-5.7) IVSd 0.96 cm (0.6-1.1) PWd 0.92 cm (0.6-1.1) EF (Teich) 78.90% FS 47.10% EDV (Teich) 77.70 mL TAPSE 2.47 (<1.7) ESV (Teich) 16.40 mL LV Diastology E Decel Time 150 (160-240 msec) E/A Ratio 1.1 Aortic Valve FARTUN Index 1.90 cm2/m2 AoV Peak Luis Alberto. 122.0 (50-130 cm/s) AO Peak GR. 6.00 mmHg AO Mean GR. 4.00 (<5 mmHg) AO VTI 20.0 (18-25 cm) FARTUN (VTI) 4.46 (2.5-4.5 cm2) Mitral Valve MV E Max Luis Alberto. 84.0 (40-130 cm/s) MV A Velocity 79.0 (40-130 cm/s) E/A Ratio 1.07 MV PHT 44.0 ms Pulmonary Valve PV Peak Velocity 97.0 (50-150 cm/s) Tricuspid Valve TR P. Velocity 170.00 cm/s RAP Estimate 10.00 mmHg RVSP 21.60 mmHg Left Ventricle The left ventricle is normal size. The left ventricular systolic function is normal. The left ventricular ejection fraction is within the normal range. There is normal left ventricular wall thickness. There is normal LV segmental wall motion. The left ventricular diastolic function is normal. LVEF is 55%. Right Ventricle The right ventricle is normal size. The right ventricular systolic function is normal. Atria The left atrium size is normal. The right atrium size is normal. There is no Doppler evidence of interatrial shunt. Aortic Valve The aortic valve opens well. There is no aortic valvular stenosis. No aortic regurgitation is present. Mitral Valve The mitral valve is normal in structure. Trace mitral regurgitation. No evidence of mitral valve stenosis. Tricuspid Valve Tricuspid valve is grossly normal in structure and function. Trace tricuspid regurgitation. There is insufficient TR jet to estimate RVSP. Pulmonic Valve The pulmonary valve is normal in structure. Trace pulmonic regurgitation. Great Vessels The aortic root is normal in size. IVC is normal in size and collapses >50% with inspiration. Pericardium There is no pericardial effusion. Other Information Study Quality: Fair Conclusion Normal biventricular systolic function. No significant valvular stenosis or regurgitation. Electronically signed by : Lacie Trevino MD 06/15/2024 00:34:37
== END 2024-06-07 23:59 | disposition home or self-care (01) ==
LOC: RT 14:05
PROVIDERS: PCP Nurse Practitioner; Visit Provider Nurse Practitioner
DX: R06.09 Other forms of dyspnea (principal); I20.89 Other forms of angina pectoris; Z82.49 Family history of ischemic heart disease and other diseases of the circulatory system; R94.31 Abnormal electrocardiogram [ECG] [EKG]; I10 Essential (primary) hypertension
CPT/HCPCS: 93306

== ENCOUNTER 2024-06-15 11:43 | Outpatient (CLI) | payer BC, SELFPAY ==
--- NOTE | 2024-06-15 11:30 | CA_ITS ---
APPROVED REPORT Exam: Exercise Treadmill Technologist: Edith Portillo Ht: 5 ft 10 in Wt: 253 lbs BSA: 2.31 m2 Rhythm: NSR Stress Test Details Test: Exercise stress testing was performed using a Aditya protocol. HR Resting HR: 87 bpm Max Heart Rate (APMHR): 181 bpm Max HR Achieved: 166 bpm Target HR (85% APMHR): 154 bpm % of APMHR: 92 Recovery HR: 134 bpm HR response to stress: Normal HR response to stress BP Resting BP: 117.0/77.0 mmHg Max BP: 180.0/82.0 mmHg Recovery BP: 164.0/84.0 mmHg BP response to stress: Normal blood pressure response to stress. ECG Resting ECG: NSR Stress EC.[address] depression Clinical Exercise duration: 6:35 min Highest Stage Achieved: III Exercise capacity: 8 METs Stress ECG Conclusion The patient reported chest pain at the time of peak stress, which subsequently resolved during recovery. There was able to exercise for a total of 6 minutes, 35 seconds, achieving a total of 8 METS. Max HR: 168 % of PM: 95 Test stopped due to: SOA, legs tired. Symptoms: (+) chest tightness. Arrhythmias/Ectopy: None. ST-T Changes: New T wave changes are noted at peak stress Conclusion: Average exercise capacity Abnormal ECG changes at peak stress, suggestive of possible ischemia. Electronically signed by : Lacie Trevino MD 06/18/2024 21:53:17
== END 2024-06-15 23:59 | disposition home or self-care (01) ==
LOC: RT 11:44
PROVIDERS: PCP Nurse Practitioner; Visit Provider Nurse Practitioner
DX: R07.89 Other chest pain (principal)
CPT/HCPCS: 93017; 93018

== ENCOUNTER 2024-06-21 10:31 | Day surgery (SDC) | payer BC, SELFPAY ==
[2024-06-21] VITALS (9 sets, daily range): BP systolic 102–172; BP diastolic 61–97; PULSE 69–111; RESP 14–20; O2SAT 85–99; BMI 36.3
--- NOTE | 2024-06-21 07:14 | IR_ITS ---
APPROVED REPORT Patient Location: Outpatient PROCEDURES Left heart catheterization Left ventriculogram Selective coronary angiogram INDICATION Angina pectoris, Abnormal stress test Informed consent was obtained prior to the procedure. COMPLICATIONS NONE Estimated Blood Loss: LESS THAN 10 ML TECHNIQUE One percent lidocaine used to anesthetize the right anterior aspect of the wrist. The right radial artery was accessed via the Seldinger technique. A 6 Danish sheath was placed in the right radial artery. 2.5 mg of Verapamil, 800 mcg of nitroglycerin, 1mg Lidocaine and 5000 U Heparin were given through the arterial sheath. The JL 3 catheter was also used to perform left heart catheterization, left ventriculogram and selective coronary angiogram. At the end of the procedure the sheath was removed good hemostasis was achieved using Traclet band, patient was transferred to the postop holding area in stable condition. 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 Evaluation of noncardiac symptoms Electronically signed by : John Fuller MD 06/21/2024 12:56:14
[2024-06-21 10:59] LABS: Basophils % 0.4 % (0.1-2.0); Eosinophils # 0.2 K/mm3 (0.0-0.4); Eosinophils % 2.3 % (0.1-12.0); Hematocrit 49.9 % (42.0-52.0); Hemoglobin 16.8 g/dL (14.1-18.0); Lymphocytes % 25.9 % (10-50); Mean Corpuscular HGB Conc 33.7 g/dL (31.8-35.4); Mean Corpuscular Hemoglobin 27.7 pg (27.0-31.2); Mean Corpuscular Volume 82.2 fl (80-94); Mean Platelet Volume 9.9 fl (7.4-10.4); Monocytes # 0.5 K/mm3 (0.1-1.0); Monocytes % 6.5 % (1.7-9.3); Neutrophils % 64.4 % (37.0-80.0); Platelet Count 203 K/mm3 (142-424); Red Blood Count 6.07 M/mm3 (4.60-6.20); Red Cell Distribution Width 14.1 % (11.5-17.5); White Blood Count 7.7 K/mm3 (4.8-10.8)
[2024-06-21 11:16] LABS: Chloride 100 mmol/L (98-107); Potassium 4.1 mmoL/L (3.5-5.1); Sodium 138 mmol/L (136-145)
[2024-06-21 11:19] LABS: Anion Gap 14.1 mEq/L (5-15); Blood Urea Nitrogen 26 mg/dl (9-20); Carbon Dioxide 28 mmol/L (22.0-30.0); Creatinine Clearance Estimated 146 mL/min (50-200); Estimated Glomerular Filt Rate 75 ml/min (>60); GFR (African American) 90 ML/MIN (>60)
[2024-06-21 11:20] LABS: Calcium 9.7 mg/dl (8.4-10.2); Glucose 123 mg/dl (74-100)
[2024-06-21] MEDS: HEPARIN 1,000 UNITS/ML 10ML VIAL (CATH LAB) 10000 UNIT IV (11:40)
[2024-06-21] MEDS: HEPARIN 1,000 UNITS/500ML NS (CATH LAB) 3000 UNIT IV (11:40)
[2024-06-21] MEDS: diphenhydrAMINE 50MG/ML VIAL 50 MG IV (11:40)
[2024-06-21] MEDS: LIDOCAINE 1% 10ML MDV 20 ML IJ (11:40)
[2024-06-21] MEDS: VERAPAMIL 2.5MG/ML 2ML VIAL 2.5 MG IV (11:41)
[2024-06-21] MEDS: NITROGLYCERIN 800MCG/8ML SYR (CATH LAB) 800 MCG IA (11:41)
[2024-06-21] MEDS: 0.9 % SODIUM CHLORIDE 500 ML 25 ML IV (11:41)
[2024-06-21] MEDS: FENTANYL 100MCG/2ML VIAL 50 MCG IV (12:45)
[2024-06-21] MEDS: MIDAZOLAM HCL 1MG/ML 5ML VIAL 1 MG IV (12:45)
[2024-06-21] MEDS: IOPAMIDOL-370 (76%);100ML BOTTLE 95 ML IV (14:59)
== END 2024-06-21 15:05 | disposition home or self-care (01) ==
PROVIDERS: PCP Nurse Practitioner; Visit Provider Internal Medicine
DX: R94.39 Abnormal result of other cardiovascular function study (principal); Q24.5 Malformation of coronary vessels; I20.9 Angina pectoris, unspecified; R06.00 Dyspnea, unspecified; R07.89 Other chest pain; Z87.891 Personal history of nicotine dependence; E55.9 Vitamin D deficiency, unspecified; E11.9 Type 2 diabetes mellitus without complications; I10 Essential (primary) hypertension; E66.9 Obesity, unspecified; Z68.36 Body mass index [BMI] 36.0-36.9, adult; Z88.0 Allergy status to penicillin; Z79.85 Long-term (current) use of injectable non-insulin antidiabetic drugs; Z79.84 Long term (current) use of oral hypoglycemic drugs; Z79.899 Other long term (current) drug therapy; J45.909 Unspecified asthma, uncomplicated; Z79.51 Long term (current) use of inhaled steroids; Z82.49 Family history of ischemic heart disease and other diseases of the circulatory system
CPT/HCPCS: 80048; 85025; 93458; 99152; C1725; C1769; J1200; J1644; J3010; Q9967

== ENCOUNTER 2024-09-12 14:45 | Outpatient (CLI) | payer BC, SELFPAY ==
[2024-09-12 19:33] LABS: Creatinine,Urine Random 67 mg/dL (Not Estab.)
[2024-09-12 19:57] LABS: Microalbumin < 6.000 mg/L (0-16.7)
[2024-09-12 20:03] LABS: Alanine Aminotransferase 45 U/L (12-78); Albumin Level 4.7 g/dl (3.5-5.0); Albumin/Globulin Ratio 1.7 (1.1-1.8); Alkaline Phosphatase 56 U/L (38-126); Anion Gap 17.3 mEq/L (5-15); Aspartate Amino Transferase 29 U/L (17-59); Bilirubin,Total 0.5 mg/dl (0.2-1.3); Blood Urea Nitrogen 36 mg/dl (9-20); Calcium 11.3 mg/dl (8.4-10.2); Carbon Dioxide 27 mmol/L (22.0-30.0); Chloride 96 mmol/L (98-107); Estimated Glomerular Filt Rate 74 ml/min (>60); GFR (African American) 90 ML/MIN (>60); Globulin 2.7 g/dL (1.3-3.2); Glucose 102 mg/dl (74-100); Potassium 4.3 mmoL/L (3.5-5.1); Sodium 136 mmol/L (136-145); Total Protein,Serum 7.4 g/dl (6.3-8.2)
[2024-09-12 20:21] LABS: 25-OH Vitamin D, Total 81.5 ng/mL (30-100)
[2024-09-12 20:42] LABS: HIV Combo NEGATIVE (Negative)
[2024-09-12 20:45] LABS: Hemoglobin A1C 7.6 % (4.0-6.0)
[2024-09-12 20:51] LABS: Vitamin B12 769 pg/mL (239-931)
[2024-09-12 20:52] LABS: Hepatitis C Ab Qual. W/ RFX NEGATIVE (Negative)
--- OUTSIDE RECORDS SUMMARY | 2024-09-13 12:48 | XMS_ITS ---
Author Organization Unknown Medications Medication Instructions Effective Dates (start - stop) Status empagliflozin 10 MG Oral Tab let [Jardiance] [id number]:00:00.000+00: 00 - Completed empagliflozin 10 MG Oral Tab let [Jardiance] [id number]:00:00.000+00: 00 - Completed empagliflozin 10 MG Oral Tab let [Jardiance] [id number]:00:00.000+00: 00 - Completed empagliflozin 10 MG Oral Tab let [Jardiance] [id number]:00:00.000+00: 00 - Completed empagliflozin 10 MG Oral Tab let [Jardiance] [id number]:00:00.000+00: 00 - Completed empagliflozin 10 MG Oral Tab let [Jardiance] [id number]:00:00.000+00: 00 - Completed empagliflozin 10 MG Oral Tab let [Jardiance] [id number]:00:00.000+00: 00 - Completed empagliflozin 10 MG Oral Tab let [Jardiance] [id number]:00:00.000+00: 00 - Completed empagliflozin 10 MG Oral Tab let [Jardiance] [id number]:00:00.000+00: 00 - Completed empagliflozin 10 MG Oral Tab let [Jardiance] [id number]:00:00.000+00: 00 - Completed [id number] 200 ACTUAT albuter ol 0.09 MG/ACTUAT Metered Dose Inhaler [id number]:00:00.000 +00: 00 - Completed empagliflozin 10 MG Oral Tab let [Jardiance] [id number]:00:00.000+00: 00 - Completed metformin hydrochloride 1000 MG Oral Tablet 2466-13-04N95:00:00.000+00: 00 - Completed duloxetine 60 MG Delayed Rel ease Oral Capsule [id number]:00:00.000+00: 00 - Completed [id number] 200 ACTUAT albuter ol 0.09 MG/ACTUAT Metered Dose Inhaler [id number]:00:00.000 +00: 00 - Completed [id number] 200 ACTUAT albuter ol 0.09 MG/ACTUAT Metered Dose Inhaler [id number]:00:00.000 +00: 00 - Completed metformin hydrochloride 1000 MG Oral Tablet [id number]:00:00.000+00: 00 - Completed metformin hydrochloride 1000 MG Oral Tablet [id number]:00:00.000+00: 00 - Completed metformin hydrochloride 1000 MG Oral Tablet 7249-72-96Z70:00:00.000+00: 00 - Completed metformin hydrochloride 1000 MG Oral Tablet 0578-24-63H74:00:00.000+00: 00 - Completed metformin hydrochloride 1000 MG Oral Tablet [id number]:00:00.000+00: 00 - Completed metformin hydrochloride 1000 MG Oral Tablet 7003-85-50K47:00:00.000+00: 00 - Completed metformin hydrochloride 1000 MG Oral Tablet [id number]:00:00.000+00: 00 - Completed metformin hydrochloride 1000 MG Oral Tablet 3439-46-05T27:00:00.000+00: 00 - Completed {20 (nirmatrelvir 150 MG Ora l Tablet) / 10 (ritonavir 100 MG Oral Tablet) } Pack [Paxlovid 5-Day] [id number]:00:00.00 0+00: 00 - Completed metformin hydrochloride 1000 MG Oral Tablet [id number]:00:00.000+00: 00 - Completed metformin hydrochloride 1000 MG Oral Tablet 8060-81-73T22:00:00.000+00: 00 - Completed [id number] 200 ACTUAT albuter ol 0.09 MG/ACTUAT Metered Dose Inhaler [id number]:00:00.000 +00: 00 - Completed [id number] 200 ACTUAT albuter ol 0.09 MG/ACTUAT Metered Dose Inhaler [id number]:00:00.000 +00: 00 - Completed [id number] 200 ACTUAT albuter ol 0.09 MG/ACTUAT Metered Dose Inhaler [id number]:00:00.000 +00: 00 - Completed metformin hydrochloride 1000 MG Oral Tablet [id number]:00:00.000+00: 00 - Completed glimepiride 4 MG Oral Tablet 04-28-24:00:00.000+00: 00 - Completed glimepiride 4 MG Oral Tablet 05-22-08:00:00.000+00: 00 - Completed glimepiride 4 MG Oral Tablet 05-01-30:00:00.000+00: 00 - Completed 24 HR metoprolol succinate 2 5 MG Extended Release Oral Tablet [id number]:00:00.000+0 0: 00 - Completed 24 HR metoprolol succinate 2 5 MG Extended Release Oral Tablet 2501-71-39T21:00:00.000+0 0: 00 - Completed 24 HR metoprolol succinate 2 5 MG Extended Release Oral Tablet 1423-23-46J20:00:00.000+0 0: 00 - Completed 24 HR metoprolol succinate 2 5 MG Extended Release Oral Tablet 7772-79-21T38:00:00.000+0 0: 00 - Completed glimepiride 4 MG Oral Tablet 05-22-07:00:00.000+00: 00 - Completed 24 HR metoprolol succinate 2 5 MG Extended Release Oral Tablet [id number]:00:00.000+0 0: 00 - Completed glimepiride 4 MG Oral Tablet 04-30-27:00:00.000+00: 00 - Completed glimepiride 4 MG Oral Tablet 05-21-03:00:00.000+00: 00 - Completed glimepiride 4 MG Oral Tablet 05-23-10:00:00.000+00: 00 - Completed chlorthalidone 25 MG Oral Tablet [id number]:00:00.000+00: 00 - Completed glimepiride 4 MG Oral Tablet 05-02-29:00:00.000+00: 00 - Completed 24 HR metoprolol succinate 2 5 MG Extended Release Oral Tablet [id number]:00:00.000+0 0: 00 - Completed lisinopril 20 MG Oral Tablet 05-21-06:00:00.000+00: 00 - Completed 24 HR metoprolol succinate 2 5 MG Extended Release Oral Tablet [id number]:00:00.000+0 0: 00 - Completed 24 HR metoprolol succinate 2 5 MG Extended Release Oral Tablet [id number]:00:00.000+0 0: 00 - Completed lisinopril 20 MG Oral Tablet 05-25-03:00:00.000+00: 00 - Completed 24 HR metoprolol succinate 2 5 MG Extended Release Oral Tablet [id number]:00:00.000+0 0: 00 - Completed lisinopril 20 MG Oral Tablet 05-02-24:00:00.000+00: 00 - Completed lisinopril 20 MG Oral Tablet 04-29-29:00:00.000+00: 00 - Completed 24 HR metoprolol succinate 2 5 MG Extended Release Oral Tablet 6738-52-39B21:00:00.000+0 0: 00 - Completed 24 HR metoprolol succinate 2 5 MG Extended Release Oral Tablet [id number]:00:00.000+0 0: 00 - Completed chlorthalidone 25 MG Oral Tablet 6834-84-56H41:00:00.000+00: 00 - Completed duloxetine 60 MG Delayed Rel ease Oral Capsule 7135-82-99G31:00:00.000+00: 00 - Completed 24 HR metoprolol succinate 2 5 MG Extended Release Oral Tablet 8758-81-97P26:00:00.000+0 0: 00 - Completed lisinopril 20 MG Oral Tablet 04-28-24:00:00.000+00: 00 - Completed glimepiride 4 MG Oral Tablet 04-29-28:00:00.000+00: 00 - Completed tramadol hydrochloride 50 MG Oral Tablet [id number]:00:00.000+00: 00 - Completed glimepiride 4 MG Oral Tablet 05-24-14:00:00.000+00: 00 - Completed ondansetron 4 MG Oral Tablet 05-25-23:00:00.000+00: 00 - Completed - 9377-65-64N05:00 :00.000+00: 00 - Completed benzonatate 200 MG Oral Capsule [id number]:00:00.000+00: 00 - Completed glimepiride 4 MG Oral Tablet 05-26-18:00:00.000+00: 00 - Completed - [id number]:00 :00.000+00: 00 - Completed glimepiride 4 MG Oral Tablet 05-26-15:00:00.000+00: 00 - Completed chlorthalidone 25 MG Oral Tablet [id number]:00:00.000+00: 00 - Completed - 8629-49-14S38:00 :00.000+00: 00 - Completed chlorthalidone 25 MG Oral Tablet 6131-23-26Q32:00:00.000+00: 00 - Completed chlorthalidone 25 MG Oral Tablet [id number]:00:00.000+00: 00 - Completed - 7254-48-87C58:00 :00.000+00: 00 - Completed 3 ML insulin glargine 100 UN T/ML / lixisenatide 0.033 MG/ML Pen Injector [Soliqua] [id number]:00:00.000+00: 00 - Completed 120 ACTUAT budesonide 0.16 MG/ACTUAT / formoterol fumarate 0.0045 MG/ACTUAT Metered Dose Inhaler [Symbicort] 6750-01-01U56:00:00.000+00: 00 - Completed 3 ML insulin glargine 100 UN T/ML / lixisenatide 0.033 MG/ML Pen Injector [Soliqua] [id number]:00:00.000+00: 00 - Completed 120 ACTUAT budesonide 0.16 MG/ACTUAT / formoterol fumarate 0.0045 MG/ACTUAT Metered Dose Inhaler [Symbicort] [id number]:00:00.000+00: 00 - Completed albuterol 0.833 MG/ML / ipra tropium bromide 0.167 MG/ML Inhalation Solution [id number]:00:00.000+00: 00 - Completed dextromethorphan hydrobromid e 3 MG/ML / promethazine hydrochloride 1.25 MG/ML Oral Solution [id number]:00:00.000+00: 00 - Completed sulfamethoxazole 800 MG / trimethoprim 160 MG Oral Tablet [id number]:00:00.00 0+00: 00 - Completed 120 ACTUAT budesonide 0.16 MG/ACTUAT / formoterol fumarate 0.0045 MG/ACTUAT Metered Dose Inhaler [Symbicort] [id number]:00:00.000+00: 00 - Completed 3 ML insulin glargine 100 UN T/ML / lixisenatide 0.033 MG/ML Pen Injector [Soliqua] [id number]:00:00.000+00: 00 - Completed 3 ML insulin glargine 100 UN T/ML / lixisenatide 0.033 MG/ML Pen Injector [Soliqua] [id number]::00.000+00: 00 - Completed 120 ACTUAT budesonide 0.16 MG/ACTUAT / formoterol fumarate 0.0045 MG/ACTUAT Metered Dose Inhaler [Symbicort] [id number]:00:00.000+00: 00 - Completed 120 ACTUAT budesonide 0.16 MG/ACTUAT / formoterol fumarate 0.0045 MG/ACTUAT Metered Dose Inhaler [Symbicort] [id number]:00:00.000+00: 00 - Completed 3 ML insulin glargine 100 UN T/ML / lixisenatide 0.033 MG/ML Pen Injector [Soliqua] [id number]:00:00.000+00: 00 - Completed Patient Care team information Name Category Status Period Participants - - Proposed period not known -
--- OUTSIDE RECORDS SUMMARY | 2024-09-13 12:48 | XMS_ITS | Clinical Summary ---
[facility] Address [address] [place] [address] Phone Care Team Providers Care Roller Coaster Operator Name Role Phone Rocco Falcon MD Unavailable Allergies Active Allergy Reactions Criticality Noted Date Comments Penicillins Anaphylaxis High 05/22/2019 Medications metFORMIN (GLUCOPHAGE) 1,000 mg Oral Tablet Take 1,000 mg by mouth 2 times daily. Active lisinopriL (PRINIVIL;ZESTR IL) 20 mg Oral Tablet tablet Take by mouth daily. 10 mg QAM 20 mg QHS Active chlorthalidone (HYGROTEN) 25 mg Oral Tablet Take 25 mg by mouth daily. Active albuterol (PROVENTIL HFA;VENTOLIN HFA) 90 mcg/actuation Inhl HFA Aerosol Inhaler Inhale 2 Puffs into the lungs as needed for Wheezing. Active traMADoL (ULTRAM) 50 mg Oral Tablet Take 50 mg by mouth as needed for Pain. Active dulaglutide (TRULICITY SUBQ) Subcutaneous (Inject under the skin) once a week. Active atorvastatin (LIPITOR) 40 mg Oral Tablet Take 1 Tab by mouth nightly. 30 Tab 11 0 Active Additional Information Patient not taking.Reported on 04/07/2021 aspirin (ASPIRIN) 81 mg Oral Tablet, Chewable Take 1 Tab by mouth daily. 30 Tab 11 0 Active Additional Information Patient not taking.Reported on 04/07/2021 esomeprazole (NEXIUM) 40 mg Oral Capsule, Delayed Release(E.C.) 0 Active metoprolol (LOPRESSOR) 25 mg Oral Tablet TAKE 1 TABLET BY MOUTH TWICE DAILY 60 Tab 3 1 Active Additional Information Patient not taking.Reported on 04/07/2021 diclofenac (VOLTAREN) 75 mg Oral Tablet, Delayed Release (E.C.)Indicatio ns:Rib injury TAKE 1 TABLET BY MOUTH TWICE DAILY WITH MEALS 60 Tab 2 1 Active Additional Information Patient not taking.Reported on 04/07/2021 Active Problems Problem Noted Date Diagnosed Date Type 2 diabetes mellitus wit hout complication, without long-term current use of insulin 02/09/2020 Mixed hyperlipidemia 02/09/2020 Essential hypertension 02/09/2020 Immunizations Immunization Administration Dates Next Due Influenza Virus Vaccine Quadrivalant, Flublok Surgical History Surgery Date Site/Laterality Comments TONSILLECTOMY IR ANGIOGRAM EXTREMITY BILATERAL Medical History Medical History Date Comments Hypertension Diabetes mellitus (HCC) Hyperlipidemia Family History Medical History Relation Name Comments High Blood Pressure Brother Cancer Father lymphoma Heart Disease Father Stroke Father Diabetes Maternal Grandmother Anemia Mother Cirrhosis Mother Diabetes Mother Heart Disease Mother High Blood Pressure Sister Thyroid Cancer Sister Relation Name Status Comments Brother Alive Father Maternal Grandfather Maternal Grandmother Mother Alive Paternal Grandfather Paternal Grandmother Sister Alive Social History Tobacco Use Types Packs/Day Years Used Date Smoking Tobacco: Some Days Cigarettes 0.5 20 Smokeless Tobacco: Current Chew Alcohol Use Standard Drinks/Week Comments Not Currently 0 (1 standard drink = 0.6 oz pur e alcohol) PHQ-2 Answer Date Recorded PHQ-2 Total Score 0 02/09/2020 Sexually Active Control Partners Comments Yes Female Sex and Gender Information Value Date Recorded Sex Assigned at Not on file Legal Sex Male 9:11 PM EDT Gender Identity Not on file Sexual Orientation Not on file Obstetrics History Last Filed Vital Signs Vital Sign Reading Time Taken Comments Blood Pressure 124/76 04/07/2021 10:17 AM EST Pulse 113 04/07/2021 10:17 AM EST Temperature 36.8 C (98.3 F) 04/07/2021 10:17 AM EST Respiratory Rate 18 04/07/2021 10:17 AM EST Oxygen Saturation 99% 04/07/2021 10:17 AM EST Inhaled Oxygen Concentration - - Weight 128.4 kg (283 lb) 04/07/2021 10:17 AM EST Height 175.3 cm (5' 9 ) 04/07/2021 10:17 AM EST Body Mass Index 41.79 04/07/2021 10:17 AM EST Plan of Treatment Health Maintenance Due Date Last Done Comments Annual Wellness Exam 09/06/1987 Kidney Health: uACR 1994 Lipids 1994 DTaP/TDaP/Td (2 - Tdap) 05/25/1996 05/24/1996 Diabetic Eye Exam 2002 Hemoglobin A1c 2002 Hepatitis B Vaccine (1 of 3 - 19+ 3-dose series) 09/06/2003 Pneumococcal Vaccine 0-49 (1 of 2 - PCV) 09/06/2003 Kidney Health: eGFR 01/10/2021 01/11/2020 COVID-19 Vaccine (3 - 2023-2 5 season) 2023 11/28/2020, 11/07/2020 Influenza Vaccine (Season Ended) 2024 01/17/2020 Meningococcal B Vaccine Aged Out No l onger eligible based on patient's age to complete this topic Goals Goal Patient Goal Type Associated Problems Recent Progress Patient-Stated? Author Blood Pressure < 140/90 Blood Pressure 124/76(2021 10:17 AM EST) No Pipe Baker MD BMI (Calculated) < 30 General 41.9(04/07/19 10:17 AM EST) No Pipe Baker MD Maintain a healthy diet, exercise regularly and maintain an ideal body weight General No Pipe Baker MD Stay Tobacco Free Lifestyle No Pipe Baker MD HEMOGLOBIN A1C < 7.0 Result Component No Pipe Baker MD Procedures Procedure Name Priority Date/Time Associated Diagnosis Comments BASIC METABOLIC PANEL Routine 01/11/2020 11:04 AM EDT Pre-operative laboratory examination from Last 3 Months or Most Recently Relevant to Health Maintenance Results * (ABNORMAL) BASIC METABOLIC PANEL (01/11/2020 11:04 AM EDT) Sodium 136 136 - 145 mmol/L 01/11/2020 4:20 PM EDT [facility] Potassium 4.4 3.5 - 5.0 mmol/L 01/11/2020 4:20 PM EDT [facility] Chloride 99 98 - 107 mmol/L 01/11/2020 4:20 PM EDT [facility] Total CO2 26 22 - 29 mmol/L 01/11/2020 4:20 PM EDT [facility] Anion Gap 11 7 - 16 mmol/L 01/11/2020 4:20 PM EDT [facility] Calcium 9.8 8.6 - 10.4 mg/dL 01/11/2020 4:20 PM EDT [facility] Glucose Lvl 148(H) 74 - 100 mg/dL 01/11/2020 4:20 PM EDT [facility] BUN 19 6 - 20 mg/dL 01/11/2020 4:20 PM EDT [facility] Creatinine 1.04 0.67 - 1.30 mg/dL 01/11/2020 4:20 PM EDT [facility], [facility] GFR Afr Am 107 >=60 mL/min/1.7 3 m2 01/11/2020 4:20 PM EDT [facility] GFR Non Afr Am 93 >=60 mL/min/1.7 3 m2 01/11/2020 4:20 PM EDT [facility] Comment: This estimated GFR was calculated using CKD-EPI equation which is modified based on ethnicity for Non Americans and Americans. Both results are reported since it is not always possible to determine the patient's ethnicity. This equation should only be used for individuals 18 and older. It has not been validated for use with the elderly (>70 years), women, or in some racial or ethnic subgroups, such as Hispanics. The equation will be less accurate in people with differences in nutritional status or muscle mass. Blood Venipuncture / Unknown 01/11/2020 11:04 AM EDT 01/11/2020 11:04 AM EDT us Rocco Falcon MD CHEMISTRY ORDERABLES Lizeth soler Result [facility] [address] [facility] [place] [id number] [facility] [address] [place] [address] from Last 3 Months or Most Recently Relevant to Health Maintenance Insurance ANTH PPO ANTH PPO ANTHEM PPO [facility] Care Teams Roller Coaster Operator Relationship Specialty Start Date End Date Rocco Falcon MD [address] [place] [address] [place] [address] Internal Medicine-Cardiovascular Disease 01/08/20
[2024-09-14 07:30] LABS: Hep B Surface Ab, Qual Reactive (.); Hepatitis B Surface Antigen Negative (Negative)
[2024-09-14 13:19] LABS: Testosterone,Total 277 ng/dL (264-916)
== END 2024-09-12 23:59 | disposition home or self-care (01) ==
LOC: LAB.DROPOF 09-13 12:47
PROVIDERS: PCP Nurse Practitioner; Visit Provider Nurse Practitioner
DX: E55.9 Vitamin D deficiency, unspecified (principal); E11.9 Type 2 diabetes mellitus without complications; I10 Essential (primary) hypertension; E66.9 Obesity, unspecified; R53.83 Other fatigue; Z13.0 Encounter for screening for diseases of the blood and blood-forming organs and certain disorders involving the immune mechanism; Z92.29 Personal history of other drug therapy
CPT/HCPCS: 80053; 82043; 82306; 82570; 82607; 83036; 84403; 86706; 86803; 87340; 87389

== ENCOUNTER 2024-12-28 11:25 | Outpatient (CLI) | payer BC, SELFPAY ==
[2024-12-28 14:57] LABS: Coronavirus 19, PCR Not Detected (NotDetected); Influenza A, PCR Not Detected (NotDetected); Influenza B, PCR Not Detected (NotDetected)
== END 2024-12-28 23:59 ==
LOC: LAB.DROPOF 12-29 02:42
PROVIDERS: PCP Nurse Practitioner Family; Visit Provider Nurse Practitioner Family
DX: R05.8 Other specified cough (principal); R09.81 Nasal congestion; R06.02 Shortness of breath
CPT/HCPCS: 87636